=== PATIENT | male | born 1945 | race Caucasian/White ===

== ENCOUNTER → 2020-10-29 | Outpatient (CLI) | payer OTHER ==
[~2020-10-29] MED LIST: ASPI325T57 PO; FINA5TAB2 PO; TERA1CAP3 PO
== END ==
LOC: M LABSMTC 11:41
PROVIDERS: ATTEND Anesthesiology
DX: Z01.812 Encounter for preprocedural laboratory examination (principal); Z20.822 Contact with and (suspected) exposure to COVID-19

== ENCOUNTER 2020-11-03 10:26 | Day surgery (SDC) | payer OTHER ==
[~2020-11-03] VITALS: Ht 188 cm; Wt 117.0 kg
[~2020-11-03 10:26] MED LIST changes: +NS 1,000 ML IV SCH
[2020-11-03] MEDS ORDERED: propofoL 200 MG/20 ML VIAL As Ordered ONE (11:33)
[2020-11-03] MEDS ORDERED: ESMOLOL INJ 100MG/10ML VIAL As Ordered ONE (11:50)
[2020-11-03] MEDS ORDERED: LABETALOL 100MG/20ML VIAL As Ordered ONE (11:55)
--- NOTE | 2020-11-03 12:17 | ROOR ---
Patient Name: Justen Win Procedure Date: 11/03/2020 11:46 AM Date of : 1945 Age: 75 Room: [facility] Gender: Male Note Status: Finalized Procedure: Colonoscopy Indications: Screening for colorectal malignant neoplasm Providers: DO J Carlos Fulton MD: [facility], Admin. Requesting Provider: Medicines: Propofol per Anesthesia Complications: No immediate complications. Procedure: Pre-Anesthesia Assessment: - Prior to the procedure, a History and Physical was performed, and patient medications and allergies were reviewed. The patient is competent. The risks and benefits of the procedure and the sedation options and risks were discussed with the patient. All questions were answered and informed consent was obtained. Patient identification and proposed procedure were verified by the physician, the nurse, the anesthesiologist and the hvac service technician in the endoscopy suite. Mental Status Examination: alert and oriented. Airway Examination: normal oropharyngeal airway and neck mobility. Respiratory Examination: clear to auscultation. CV Examination: normal. Prophylactic Antibiotics: The patient does not require prophylactic antibiotics. Prior Anticoagulants: The patient has taken no previous anticoagulant or antiplatelet agents. ASA Grade Assessment: III - A patient with severe systemic disease. After reviewing the risks and benefits, the patient was deemed in satisfactory condition to undergo the procedure. The anesthesia plan was to use monitored anesthesia care (MAC). Immediately prior to administration of medications, the patient was re-assessed for adequacy to receive sedatives. The heart rate, respiratory rate, oxygen saturations, blood pressure, adequacy of pulmonary ventilation, and response to care were monitored throughout the procedure. The physical status of the patient was re-assessed after the procedure. The Colonoscope was introduced through the anus and advanced to the cecum, identified by appendiceal orifice and ileocecal valve. The colonoscopy was performed without difficulty. The patient tolerated the procedure well. Findings: Non-bleeding internal hemorrhoids were found during retroflexion. The hemorrhoids were mild and Grade II (internal hemorrhoids that prolapse but reduce spontaneously). Multiple small and large-mouthed diverticula were found in the sigmoid colon. A less than 5 mm polyp was found in the sigmoid colon. The polyp was hyperplastic. The polyp was removed with a jumbo cold forceps. Resection and retrieval were complete. Estimated blood loss was minimal. Impression: - Non-bleeding internal hemorrhoids. - Diverticulosis in the sigmoid colon. - One less than 5 mm polyp in the sigmoid colon, removed with a jumbo cold forceps. Resected and retrieved. Recommendation: - Patient has a contact number available for emergencies. The signs and symptoms of potential delayed complications were discussed with the patient. Return to normal activities tomorrow. Written discharge instructions were provided to the patient. - Await pathology results. - Repeat colonoscopy in 5-10 years for surveillance based on pathology results. - Return to my office at appointment to be scheduled. Procedure Code(s): --- Professional --- 69371, Colonoscopy, flexible; with biopsy, single or multiple Diagnosis Code(s): --- Professional --- Z12.11, Encounter for screening for malignant neoplasm of colon K64.1, Second degree hemorrhoids K63.5, Polyp of colon K57.30, Diverticulosis of large intestine without perforation or abscess without bleeding CPT copyright 2019 [employer]. All rights reserved. The codes documented in this report are preliminary and upon reconnaissance crewmember review may be revised to meet current compliance requirements. Curt Alamo DO 11/03/2020 12:17:29 PM Electronically signed by Curt Alamo DO Number of Addenda: 0 Note Initiated On: 11/03/2020 11:46 AM Estimated Blood Loss: Estimated blood loss was minimal.
[2020-11-03 13:01] VITALS: BP 182/93
--- NOTE | 2020-11-04 08:39 | ECGEPIP ---
[facility] Test Date: 2020-11-03 Pat Name: MARIKA SALMERON Department: Room: - Gender: Male [employer] Supervisor: LEAH : 1945 Requested By: JONATAN Perrin Order Number: [id number] Reading MD: Kenan Yao Measurements Intervals [place] Rate: 65 P: 31 NM: 198 QRS: -50 QRSD: 178 T: 132 QT: 514 QTc: 534 Interpretive Statements Sinus arrhythmia Left axis deviation Left bundle branch block No prior Electronically Signed on 11-04-2020 8:38:53 EDT by Kenan Yao
== END 2020-11-03 13:02 | disposition home or self-care (01) ==
LOC: M OPP 10:26
PROVIDERS: ATTEND Surgery
DX: Z12.11 Encounter for screening for malignant neoplasm of colon (principal); D12.5 Benign neoplasm of sigmoid colon; K64.1 Second degree hemorrhoids; K57.30 Diverticulosis of large intestine without perforation or abscess without bleeding; I10 Essential (primary) hypertension; Z87.891 Personal history of nicotine dependence; Z79.82 Long term (current) use of aspirin; Z79.899 Other long term (current) drug therapy; Z82.49 Family history of ischemic heart disease and other diseases of the circulatory system

== ENCOUNTER → 2020-12-14 | Outpatient (CLI) | payer MEDICARE, OTHER ==
[~2020-12-14] MED LIST changes: -NS 1,000 ML IV SCH
--- NOTE | 2020-12-14 16:45 | REP ---
INDICATION: COUGH. COMPARISON: None. TECHNIQUE: PA and lateral FINDINGS: There is cardiomegaly. 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 There are no patchy opacities or pleural effusions. This costophrenic angles are sharp. The osseous structures are within normal limits for the patient's age. 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 IMPRESSION: Chronic changes as described above. There is no evidence of acute cardiopulmonary disease. <Electronically signed by Maynor Rhodes > 12/14/20 [id number]
[2020-12-14 19:07] LABS: ALBUMIN 3.5 GM/DL (3.2-5.2); BILIRUBIN,TOTAL 0.5 MG/DL (0.2-1.0); CREATININE FOR GFR 1.35 MG/DL (0.70-1.30); GLOMERULAR FILTRATION RATE 54.7 (>42); POTASSIUM SERUM 4.2 MEQ/L (3.5-5.1)
== END ==
LOC: M PLALAB 14:56
PROVIDERS: ATTEND Nurse Practitioner Adult Health
DX: R05.9 Cough, unspecified (principal); I10 Essential (primary) hypertension; I42.8 Other cardiomyopathies; Z23 Encounter for immunization
CPT/HCPCS: 36415; 71046; 80053; 83880; 90682; G0008; G0463

== ENCOUNTER 2021-10-13 14:06 | Emergency (ER) | payer MEDICARE, OTHER ==
[~2021-10-13] VITALS: Ht 188 cm; Wt 114.1 kg
[2021-10-13 16:41] LABS: BACTERIA, URINE NONE SEEN; HYALINE CAST, URINE NONE SEEN /lpf (0-1); RBC, URINE TNTC /hpf (0-3); SQUAMOUS EPITHELIAL CELL URINE NONE SEEN /hpf (SMALL AMT)
[2021-10-13 17:30] LABS: INR 1.07; PROTHROMBIN TIME 14.3 SECONDS (12.7-14.5)
[2021-10-13 17:38] LABS: CALCIUM LEVEL 9.4 MG/DL (8.8-10.2); CREATININE FOR GFR 1.49 MG/DL (0.70-1.30); GLOMERULAR FILTRATION RATE 48.7 (>42); POTASSIUM SERUM 4.4 MEQ/L (3.5-5.1)
[2021-10-13] MEDS ORDERED: ISOVUE-370 76% 100ML VIAL As Ordered ONE (18:52)
[2021-10-13 20:32] LABS: BASO # 0.1 10^3/uL (0.0-0.2); BASO % 0.6 % (0.0-1.0); EOS # 0.3 10^3/uL (0.0-0.5); EOS % 2.4 % (0.0-3.0); HEMATOCRIT 42.4 % (42.0-52.0); HEMOGLOBIN 14.1 g/dl (13.5-17.5); LYMPH # 2.3 10^3/uL (1.5-5.0); LYMPH % 21.9 % (24.0-44.0); MEAN CORPUSCULAR HEMOGLOBIN 31.1 pg (27.0-33.0); MEAN CORPUSCULAR HGB CONC 33.3 g/dl (32.0-36.5); MEAN CORPUSCULAR VOLUME 93.4 fl (80.0-96.0); MONO % 9.7 % (2.0-8.0); NEUTROPHILS # 6.8 10^3/uL (1.5-8.5); PLATELET COUNT, AUTOMATED 267 10^3/uL (150-450); RED BLOOD COUNT 4.54 10^6/uL (4.30-6.10); WHITE BLOOD COUNT 10.5 10^3/uL (4.0-10.0)
[2021-10-13 21:12] LABS: ALBUMIN 3.8 GM/DL (3.2-5.2); BILIRUBIN,DIRECT 0.2 MG/DL (0.0-0.2); BILIRUBIN,TOTAL 0.8 MG/DL (0.2-1.0); TOTAL PROTEIN 7.7 GM/DL (6.4-8.2)
[2021-10-13] MEDS ORDERED: BACT800T5 PO (21:49)
[2021-10-13] MEDS ORDERED: BACTRIM 160MG/800MG DS TAB PO ONE (21:55)
[2021-10-13 22:04] VITALS: BP 141/88
== END 2021-10-13 22:15 | disposition home or self-care (01) ==
LOC: M ED 14:06
DX: T83.091A Other mechanical complication of indwelling urethral catheter, initial encounter (principal); N40.1 Benign prostatic hyperplasia with lower urinary tract symptoms; R31.9 Hematuria, unspecified; R33.9 Retention of urine, unspecified; N21.0 Calculus in bladder; N50.89 Other specified disorders of the male genital organs; N28.1 Cyst of kidney, acquired; I11.0 Hypertensive heart disease with heart failure; I50.9 Heart failure, unspecified
CPT/HCPCS: 51700; 74177; 76870; 80047; 80048; 80076; 81000; 81015; 83690; 85025; 85610; 87086; 93976; 99284; Q9967

== ENCOUNTER → 2021-11-04 | Outpatient (REF) | payer MEDICARE, OTHER ==
[~2021-11-04] MED LIST changes: +BACT800T5 PO
== END ==
LOC: M SMT 13:05
PROVIDERS: ATTEND Urology
DX: N21.0 Calculus in bladder (principal)

== ENCOUNTER → 2021-11-07 | Outpatient (CLI) | payer OTHER, MEDICARE ==
[2021-11-07 18:05] LABS: BASO # 0.1 10^3/uL (0.0-0.2); BASO % 0.8 % (0.0-1.0); EOS # 0.4 10^3/uL (0.0-0.5); HEMATOCRIT 38.4 % (42.0-52.0); HEMOGLOBIN 12.4 g/dl (13.5-17.5); LYMPH # 2.1 10^3/uL (1.5-5.0); LYMPH % 27.4 % (24.0-44.0); MEAN CORPUSCULAR HEMOGLOBIN 31.1 pg (27.0-33.0); MEAN CORPUSCULAR HGB CONC 32.3 g/dl (32.0-36.5); MEAN CORPUSCULAR VOLUME 96.2 fl (80.0-96.0); MONO # 0.7 10^3/uL (0.0-0.8); MONO % 9.7 % (2.0-8.0); NEUTROPHILS # 4.3 10^3/uL (1.5-8.5); NEUTROPHILS % 56.7 % (36.0-66.0); PLATELET COUNT, AUTOMATED 258 10^3/uL (150-450); RED BLOOD COUNT 3.99 10^6/uL (4.30-6.10); WHITE BLOOD COUNT 7.6 10^3/uL (4.0-10.0)
[2021-11-07 18:19] LABS: INR 1.03; PROTHROMBIN TIME 13.9 SECONDS (12.7-14.5)
[2021-11-07 18:20] LABS: PARTIAL THROMBOPLASTIN TIME 35.4 SECONDS (25.9-37.0)
[2021-11-07 18:31] LABS: ALBUMIN 3.7 GM/DL (3.2-5.2); BILIRUBIN,TOTAL 0.4 MG/DL (0.2-1.0); CREATININE FOR GFR 1.44 MG/DL (0.70-1.30); GLOMERULAR FILTRATION RATE 50.6 (>42); MAGNESIUM LEVEL 2.6 MG/DL (1.8-2.4); POTASSIUM SERUM 3.9 MEQ/L (3.5-5.1); TOTAL PROTEIN 7.7 GM/DL (6.4-8.2)
== END ==
LOC: M RAD 17:06
PROVIDERS: ATTEND Family Medicine
DX: E78.2 Mixed hyperlipidemia (principal); D50.9 Iron deficiency anemia, unspecified

== ENCOUNTER → 2021-11-09 | Outpatient (CLI) | payer MEDICARE, OTHER | LOC: M LABSMTC 10:55 | PROVIDERS: ATTEND Anesthesiology | DX: Z01.812 Encounter for preprocedural laboratory examination (principal); Z11.52 Encounter for screening for COVID-19 ==

== ENCOUNTER 2021-11-14 06:04 | Day surgery (SDC) | payer OTHER ==
[~2021-11-14] VITALS: Ht 188 cm; Wt 108.8 kg
[~2021-11-14 06:04] MED LIST changes: +ATOR80TA59 PO; +ELIQ5TAB PO; +FLOM0.4C39 PO; +FURO40TA2 PO; +LEVO1TAB39 PO; +MM S100C PO; +POLY1POW38 PO
[2021-11-14] MEDS ORDERED: ceFAZolin SOD 2 GM in IV 1 EA IV ONE (06:10)
[2021-11-14] MEDS ORDERED: LR 1,000 ML IV SCH ×2 (06:50→10:00)
[2021-11-14] MEDS ORDERED: propofoL 200 MG/20 ML VIAL As Ordered ONE (07:09)
[2021-11-14] MEDS ORDERED: LIDOCAINE 2% 100MG/5ML SDV (FOR ANES.) As Ordered ONE (07:09)
[2021-11-14] MEDS ORDERED: fentaNYL 100 MCG/2 ML INJECTION As Ordered ONE ×2 (07:09→09:04)
[2021-11-14] MEDS ORDERED: ONDANSETRON 4MG 2ML VIAL As Ordered ONE (07:09)
[2021-11-14] MEDS ORDERED: MIDAZOLAM INJ 2MG/2ML VIAL (J2250 PER 1MG) As Ordered ONE (07:09)
[2021-11-14] MEDS ORDERED: dexameTHASONE 4 MG/ML 1ML VIAL (J1100 PER 1MG) As Ordered ONE (07:09)
[2021-11-14] MEDS ORDERED: CIPROFLOXACIN 400 MG in IV 1 EA IV ONE (08:30)
[2021-11-14] MEDS ORDERED: CIPROFLOXACIN/D5W 400 MG/200 ML BAG (J0744) As Ordered ONE (08:36)
[2021-11-14] MEDS ORDERED: ACETAMINOPHEN 1000MG 100ML IV BTL (OFIRMEV) (J0131 PER 10MG) As Ordered ONE (08:51)
[2021-11-14] MEDS ORDERED: PHENYLephrine 500MCG 5ML (100MCG/ML) SYRINGE As Ordered ONE ×2 (09:05→09:09)
[2021-11-14] MEDS ORDERED: VASOPRESSIN INJ 20 UNITS/ML VIAL As Ordered ONE (09:31)
[2021-11-14] MEDS ORDERED: fentaNYL 100 MCG/2 ML INJECTION IV PRN (10:00)
[2021-11-14] MEDS ORDERED: oxyCODONE 5MG TAB PO PRN (10:00)
[2021-11-14] MEDS ORDERED: ONDANSETRON 4MG 2ML VIAL IV PRN (10:00)
[2021-11-14] MEDS ORDERED: LEVO1TAB39 PO (10:03)
[2021-11-14 12:25] VITALS: BP 127/88
== END 2021-11-14 12:38 | disposition home or self-care (01) ==
LOC: M SDC 06:04
PROVIDERS: ATTEND Urology
DX: N21.0 Calculus in bladder (principal); N40.1 Benign prostatic hyperplasia with lower urinary tract symptoms; R33.9 Retention of urine, unspecified
CPT/HCPCS: 52318; 82365; C1769; J0131; J0690; J0744; J1100; J2250; J2370; J2405; J3010

== ENCOUNTER 2022-07-17 01:12 | Observation (INO) | payer MEDICARE, OTHER ==
[~2022-07-17] VITALS: Ht 188 cm; Wt 111.2 kg
[2022-07-17 03:06] LABS: BASO # 0.1 10^3/uL (0.0-0.2); BASO % 0.6 % (0.0-1.0); EOS # 0.2 10^3/uL (0.0-0.5); EOS % 2.4 % (0.0-3.0); HEMATOCRIT 40.3 % (42.0-52.0); HEMOGLOBIN 12.6 g/dl (13.5-17.5); LYMPH # 0.9 10^3/uL (1.5-5.0); LYMPH % 10.2 % (24.0-44.0); MEAN CORPUSCULAR HEMOGLOBIN 26.4 pg (27.0-33.0); MEAN CORPUSCULAR HGB CONC 31.3 g/dl (32.0-36.5); MEAN CORPUSCULAR VOLUME 84.3 fl (80.0-96.0); MONO # 0.6 10^3/uL (0.0-0.8); MONO % 7.1 % (2.0-8.0); NEUTROPHILS # 6.7 10^3/uL (1.5-8.5); NEUTROPHILS % 79.3 % (36.0-66.0); PLATELET COUNT, AUTOMATED 281 10^3/uL (150-450); RED BLOOD COUNT 4.78 10^6/uL (4.30-6.10); WHITE BLOOD COUNT 8.5 10^3/uL (4.0-10.0)
[2022-07-17 03:19] LABS: INR 1.08; PROTHROMBIN TIME 14.2 SECONDS (12.5-14.5)
[2022-07-17 03:20] LABS: PARTIAL THROMBOPLASTIN TIME 32.5 SECONDS (24.8-34.2)
[2022-07-17 03:30] LABS: ALBUMIN 3.4 G/DL (3.2-5.2); BILIRUBIN,DIRECT 0.1 MG/DL (<0.4); BILIRUBIN,TOTAL 0.3 MG/DL (0.3-1.2); CALCIUM LEVEL 9.5 MG/DL (8.3-10.6); CREATININE FOR GFR 1.54 MG/DL (0.70-1.30); GLOMERULAR FILTRATION RATE 46.7 (>42); POTASSIUM SERUM 3.6 MMOL/L (3.5-5.1)
[2022-07-17] MEDS ORDERED: LevoFLOXacin 750 MG TABLET PO SCH (06:00)
[2022-07-17] MEDS ORDERED: cefTRIAXone SOD 2 GM in D5W MINI-BAG PLUS 50 ML IV ONE (07:45)
[2022-07-17] MEDS ORDERED: METO200T28 PO (08:44)
[2022-07-17] MEDS ORDERED: ELIQ5TAB PO (08:44)
[2022-07-17] MEDS ORDERED: JARD1TAB3 PO (08:44)
[2022-07-17] MEDS ORDERED: MED REC COMMENT (08:46)
[2022-07-17] MEDS ORDERED: FUROSEMIDE 40 MG TAB PO SCH (09:00)
[2022-07-17] MEDS ORDERED: ATORVASTATIN 20 MG TAB PO SCH (09:00)
[2022-07-17] MEDS ORDERED: HOME MED LIST COMPLETE! XX SCH (09:00)
[2022-07-17] MEDS ORDERED: TAMSULOSIN 0.4 MG CAP PO SCH (09:00)
[2022-07-17] MEDS ORDERED: METOPROLOL SUCC (TopROL XL) 100MG *XL* TAB PO SCH (09:00)
[2022-07-17 10:00] VITALS: BP 142/88; TEMP 97.3; O2SAT 97
[2022-07-17] MEDS ORDERED: LEVO1TAB40 PO (13:59)
[2022-07-17] MEDS ORDERED: DOCUSATE SODIUM 100MG CAPSULE PO SCH (21:00)
== END 2022-07-17 14:24 | disposition left against medical advice (07) ==
LOC: M ED 01:12 → INTOOBSV 08:31 → M ED INP 08:31 → ENRESERV 09:01 → M MSPAV 10:03
PROVIDERS: ADMIT Internal Medicine; ATTEND Internal Medicine
DX: T83.018A Breakdown (mechanical) of other urinary catheter, initial encounter (principal); Y73.2 Prosthetic and other implants, materials and accessory gastroenterology and urology devices associated with adverse incidents; R31.9 Hematuria, unspecified; N48.89 Other specified disorders of penis; B95.62 Methicillin resistant Staphylococcus aureus infection as the cause of diseases classified elsewhere; N40.1 Benign prostatic hyperplasia with lower urinary tract symptoms; R33.9 Retention of urine, unspecified; I13.0 Hypertensive heart and chronic kidney disease with heart failure and stage 1 through stage 4 chronic kidney disease, or unspecified chronic kidney disease; N18.30 Chronic kidney disease, stage 3 unspecified; I50.9 Heart failure, unspecified; I25.10 Atherosclerotic heart disease of native coronary artery without angina pectoris; I25.2 Old myocardial infarction; Z91.199 Patient's noncompliance with other medical treatment and regimen due to unspecified reason; Z79.899 Other long term (current) drug therapy; Z79.01 Long term (current) use of anticoagulants; Z79.890 Hormone replacement therapy
CPT/HCPCS: 51700; 74176; 80048; 80076; 81000; 81015; 83690; 85025; 85610; 85730; 86850; 86900; 86901; 87088; 87186; 87635; 93041; 96365; 99285; G0378; J0696

== ENCOUNTER 2022-07-20 03:27 | Emergency (ER) | payer OTHER, MEDICARE ==
[~2022-07-20] VITALS: Ht 188 cm; Wt 114.9 kg
[~2022-07-20 03:27] MED LIST changes: +JARD1TAB3 PO; +LEVO1TAB40 PO; +MED REC COMMENT; +METO200T28 PO
[2022-07-20 06:24] VITALS: BP 136/64
== END 2022-07-20 06:27 | disposition home or self-care (01) ==
LOC: M ED 03:27 → EEVIPCON 03:27 → M ED 06:27
DX: R33.9 Retention of urine, unspecified (principal); T83.091A Other mechanical complication of indwelling urethral catheter, initial encounter; E11.9 Type 2 diabetes mellitus without complications; I10 Essential (primary) hypertension; E78.5 Hyperlipidemia, unspecified; Z79.01 Long term (current) use of anticoagulants; Z79.899 Other long term (current) drug therapy

== ENCOUNTER → 2022-08-02 | Outpatient (REF) | payer OTHER | LOC: M SMT 17:16 | PROVIDERS: ATTEND Urology | DX: R33.9 Retention of urine, unspecified (principal) ==

== ENCOUNTER → 2022-08-11 | Outpatient (CLI) | payer MEDICARE, OTHER ==
[2022-08-11 11:30] LABS: HEMATOCRIT 39.7 % (42.0-52.0); HEMOGLOBIN 12.1 g/dl (13.5-17.5); MEAN CORPUSCULAR HEMOGLOBIN 26.1 pg (27.0-33.0); MEAN CORPUSCULAR HGB CONC 30.5 g/dl (32.0-36.5); MEAN CORPUSCULAR VOLUME 85.6 fl (80.0-96.0); PLATELET COUNT, AUTOMATED 248 10^3/uL (150-450); RED BLOOD COUNT 4.64 10^6/uL (4.30-6.10); WHITE BLOOD COUNT 6.2 10^3/uL (4.0-10.0)
[2022-08-11 11:38] LABS: INR 1.12; PROTHROMBIN TIME 14.6 SECONDS (12.5-14.5)
[2022-08-11 12:04] LABS: ALBUMIN 3.6 G/DL (3.2-5.2); ALKALINE PHOSPHATASE 79 U/L (46-116); ALT/SGPT < 9 U/L (7.0-40); AST/SGOT 16 U/L (<34); BILIRUBIN,TOTAL 0.6 MG/DL (0.3-1.2); BLOOD UREA NITROGEN 21 MG/DL (9-23); CALCIUM LEVEL 8.4 MG/DL (8.3-10.6); CARBON DIOXIDE LEVEL 25 MMOL/L (20-31); CHLORIDE LEVEL 105 MMOL/L (98-107); CREATININE FOR GFR 1.43 MG/DL (0.70-1.30); GLOMERULAR FILTRATION RATE 50.9 (>42); GLUCOSE, FASTING 126 MG/DL (74-106); POTASSIUM SERUM 3.8 MMOL/L (3.5-5.1); SODIUM LEVEL 138 MMOL/L (136-145)
[2022-08-14 23:11] LABS: PSA % FREE 29.3 % (.); PSA FREE 2.81 ng/mL; PSA TOTAL 9.6 ng/mL (0.0-4.0)
== END ==
LOC: M RAD 10:12
PROVIDERS: ATTEND Urology
DX: R33.9 Retention of urine, unspecified (principal); Z79.01 Long term (current) use of anticoagulants; R97.20 Elevated prostate specific antigen [PSA]

== ENCOUNTER 2022-09-14 19:54 | Emergency (ER) | payer MEDICARE, OTHER ==
[~2022-09-14] VITALS: Ht 188 cm; Wt 114.0 kg
[2022-09-15 01:08] VITALS: BP 126/86; TEMP 96.4; O2SAT 96
== END 2022-09-15 01:09 | disposition home or self-care (01) ==
LOC: M ED 19:54
DX: R33.9 Retention of urine, unspecified (principal); T83.098A Other mechanical complication of other urinary catheter, initial encounter; I11.9 Hypertensive heart disease without heart failure; I48.91 Unspecified atrial fibrillation; I50.20 Unspecified systolic (congestive) heart failure; Z79.01 Long term (current) use of anticoagulants; Z79.899 Other long term (current) drug therapy

== ENCOUNTER 2023-06-16 23:43 | Emergency (ER) | payer MEDICARE, OTHER ==
[~2023-06-16] VITALS: Ht 188 cm; Wt 109.7 kg
[~2023-06-16 23:43] MED LIST changes: +METO200T15 PO; -METO200T28 PO
[2023-06-17 03:25] LABS: BASO % 0.7 % (0.0-1.0); EOS # 0.2 10^3/uL (0.0-0.5); EOS % 2.5 % (0.0-3.0); HEMOGLOBIN 11.1 g/dl (13.5-17.5); LYMPH # 0.8 10^3/uL (1.5-5.0); LYMPH % 13.7 % (24.0-44.0); MEAN CORPUSCULAR HEMOGLOBIN 30.7 pg (27.0-33.0); MEAN CORPUSCULAR HGB CONC 33.6 g/dl (32.0-36.5); MEAN CORPUSCULAR VOLUME 91.2 fl (80.0-96.0); MONO # 0.6 10^3/uL (0.0-0.8); MONO % 9.6 % (2.0-8.0); NEUTROPHILS # 4.5 10^3/uL (1.5-8.5); NEUTROPHILS % 73.3 % (36.0-66.0); PLATELET COUNT, AUTOMATED 217 10^3/uL (150-450); RED BLOOD COUNT 3.62 10^6/uL (4.30-6.10); WHITE BLOOD COUNT 6.1 10^3/uL (4.0-10.0)
[2023-06-17 03:37] LABS: INR 1.13; PARTIAL THROMBOPLASTIN TIME 30.6 SECONDS (24.8-34.2); PROTHROMBIN TIME 14.2 SECONDS (12.5-14.5)
[2023-06-17 03:56] LABS: CALCIUM LEVEL 8.6 MG/DL (8.3-10.6); CREATININE FOR GFR 1.27 MG/DL (0.70-1.30); GLOMERULAR FILTRATION RATE 58.2 (>42); POTASSIUM SERUM 3.9 MMOL/L (3.5-5.1)
[2023-06-17 06:45] VITALS: BP 148/88; TEMP 97.8; O2SAT 96
== END 2023-06-17 07:00 | disposition home or self-care (01) ==
LOC: M ED 23:43
DX: R31.9 Hematuria, unspecified (principal); T83.098A Other mechanical complication of other urinary catheter, initial encounter; F10.10 Alcohol abuse, uncomplicated; Z79.899 Other long term (current) drug therapy

== ENCOUNTER 2023-06-19 19:37 | Observation (INO) | payer MEDICARE, OTHER ==
[~2023-06-19] VITALS: Ht 188 cm; Wt 104.7 kg
[2023-06-19] MEDS: ONDANSETRON 4MG 2ML VIAL IV ONE (21:10)
[2023-06-19 21:43] LABS: BASO % 0.5 % (0.0-1.0); EOS # 0.2 10^3/uL (0.0-0.5); EOS % 2.7 % (0.0-3.0); HEMATOCRIT 31.6 % (42.0-52.0); HEMOGLOBIN 10.5 g/dl (13.5-17.5); LYMPH # 0.9 10^3/uL (1.5-5.0); MEAN CORPUSCULAR HEMOGLOBIN 30.7 pg (27.0-33.0); MEAN CORPUSCULAR HGB CONC 33.2 g/dl (32.0-36.5); MEAN CORPUSCULAR VOLUME 92.4 fl (80.0-96.0); MONO # 0.7 10^3/uL (0.0-0.8); MONO % 10.7 % (2.0-8.0); NEUTROPHILS # 4.4 10^3/uL (1.5-8.5); NEUTROPHILS % 70.5 % (36.0-66.0); PLATELET COUNT, AUTOMATED 230 10^3/uL (150-450); RED BLOOD COUNT 3.42 10^6/uL (4.30-6.10); WHITE BLOOD COUNT 6.2 10^3/uL (4.0-10.0)
[2023-06-19 21:56] LABS: INR 1.06; PARTIAL THROMBOPLASTIN TIME 32.2 SECONDS (24.8-34.2); PROTHROMBIN TIME 13.5 SECONDS (12.5-14.5)
[2023-06-19] MEDS: MORPHINE 4 MG/ML 1ML VIAL IV PRN (21:58)
[2023-06-19 22:09] LABS: LIPASE 32 U/L (12-53)
[2023-06-19 22:12] LABS: ALBUMIN 2.6 G/DL (3.2-5.2); ALKALINE PHOSPHATASE 70 U/L (46-116); ALT/SGPT < 9 U/L (7.0-40); AST/SGOT 16 U/L (<34); BILIRUBIN,DIRECT 0.1 MG/DL (<0.4); BILIRUBIN,TOTAL 0.3 MG/DL (0.3-1.2); BLOOD UREA NITROGEN 19 MG/DL (9-23); CALCIUM LEVEL 8.3 MG/DL (8.3-10.6); CARBON DIOXIDE LEVEL 25 MMOL/L (20-31); CHLORIDE LEVEL 107 MMOL/L (98-107); CREATININE FOR GFR 1.34 MG/DL (0.70-1.30); GLOMERULAR FILTRATION RATE 54.7 (>42); GLUCOSE, FASTING 129 MG/DL (74-106); POTASSIUM SERUM 3.8 MMOL/L (3.5-5.1); SODIUM LEVEL 140 MMOL/L (136-145); TOTAL PROTEIN 6.1 G/DL (5.7-8.2)
[2023-06-20] MEDS ORDERED: VITA500T40 PO (00:07)
[2023-06-20] MEDS ORDERED: ENTR1TAB PO (00:07)
[2023-06-20] MEDS ORDERED: HOME MED LIST COMPLETE! XX SCH (00:10)
[2023-06-20] MEDS: NS 1,000 ML IV SCH (02:29)
[2023-06-20 03:13] VITALS: BP 136/85; TEMP 97; O2SAT 98
[2023-06-20] MEDS: cefTRIAXone SOD 1 GM in D5W MINI-BAG PLUS 50 ML IV SCH (05:18)
[2023-06-20 05:52] LABS: HEMATOCRIT 28.9 % (42.0-52.0); HEMOGLOBIN 9.6 g/dl (13.5-17.5); MEAN CORPUSCULAR HEMOGLOBIN 30.4 pg (27.0-33.0); MEAN CORPUSCULAR HGB CONC 33.2 g/dl (32.0-36.5); MEAN CORPUSCULAR VOLUME 91.5 fl (80.0-96.0); PLATELET COUNT, AUTOMATED 229 10^3/uL (150-450); RED BLOOD COUNT 3.16 10^6/uL (4.30-6.10); WHITE BLOOD COUNT 5.6 10^3/uL (4.0-10.0)
[2023-06-20 06:14] LABS: BLOOD UREA NITROGEN 15 MG/DL (9-23); CALCIUM LEVEL 7.9 MG/DL (8.3-10.6); CARBON DIOXIDE LEVEL 26 MMOL/L (20-31); CHLORIDE LEVEL 107 MMOL/L (98-107); GLOMERULAR FILTRATION RATE > 60.0 (>42); GLUCOSE, FASTING 95 MG/DL (74-106); POTASSIUM SERUM 3.7 MMOL/L (3.5-5.1); SODIUM LEVEL 139 MMOL/L (136-145)
[2023-06-20 07:30] VITALS: BP 140/80; TEMP 98; O2SAT 95
[2023-06-20] MEDS: METOPROLOL SUCC (TopROL XL) 100MG *XL* TAB PO SCH (09:00)
[2023-06-20] MEDS: ENTRESTO 24-26MG TABLET (SACUBITRIL/VALSARTAN) PO SCH (09:00)
[2023-06-20] MEDS: ATORVASTATIN 20 MG TAB PO SCH (09:00)
[2023-06-20] MEDS: DOCUSATE SODIUM 100MG CAPSULE PO SCH (09:00)
[2023-06-20] MEDS: FINASTERIDE 5MG TAB PO SCH (09:00)
[2023-06-20] MEDS: CYANOCOBALAMIN 500 MCG TAB PO SCH (09:00)
[2023-06-20 11:58] VITALS: BP 131/83; TEMP 98.9; O2SAT 95
[2023-06-20] MEDS ORDERED: propofoL 200 MG/20 ML VIAL As Ordered ONE (15:50)
[2023-06-20] MEDS ORDERED: LIDOCAINE 2% 100MG/5ML SDV (FOR ANES.) As Ordered ONE (15:50)
[2023-06-20] MEDS ORDERED: ONDANSETRON 4MG 2ML VIAL As Ordered ONE (15:51)
[2023-06-20 15:57] VITALS: BP 150/86; TEMP 98.8; O2SAT 96
[2023-06-20] MEDS ORDERED: fentaNYL 100 MCG/2 ML INJECTION As Ordered ONE (17:03)
[2023-06-20] MEDS ORDERED: ACETAMINOPHEN 1000MG 100ML IV BAG As Ordered ONE (17:16)
[2023-06-20] MEDS ORDERED: MORPHINE 2 MG/ML 1ML VIAL IV PRN (18:00)
[2023-06-20] MEDS ORDERED: fentaNYL 100 MCG/2 ML INJECTION IV PRN (18:00)
[2023-06-20] MEDS ORDERED: oxyCODONE 5MG TAB PO PRN (18:00)
[2023-06-20] MEDS ORDERED: METOCLOPRAMIDE INJ 10MG/2ML VIAL IV PRN (18:00)
[2023-06-20] MEDS ORDERED: MEPERIDINE 25 MG/ML 1ML VIAL IV PRN (18:00)
[2023-06-20] MEDS ORDERED: ONDANSETRON 4MG 2ML VIAL IV PRN (18:00)
[2023-06-20 18:36] VITALS: BP 147/82; TEMP 97.2; O2SAT 95
[2023-06-20] MEDS: LR 1,000 ML IV SCH (18:39)
[2023-06-21] VITALS: BP 141/84; TEMP 97.3; O2SAT 95
[2023-06-21] MEDS: ACETAMINOPHEN TAB 650MG DOSE (2X325MG) PO PRN (02:30)
[2023-06-21 04:10] VITALS: BP 148/83; TEMP 98.2; O2SAT 98
[2023-06-21] MEDS ORDERED: BACI1CAP PO (07:24)
[2023-06-21] MEDS ORDERED: CEFD300CAP PO (07:24)
[2023-06-21 08:05] VITALS: BP 152/88; TEMP 98; O2SAT 95
[2023-06-21 08:10] LABS: BASO % 0.4 % (0.0-1.0); EOS % 0.4 % (0.0-3.0); HEMATOCRIT 30.4 % (42.0-52.0); HEMOGLOBIN 10.2 g/dl (13.5-17.5); LYMPH # 0.9 10^3/uL (1.5-5.0); LYMPH % 14.9 % (24.0-44.0); MEAN CORPUSCULAR HEMOGLOBIN 30.6 pg (27.0-33.0); MEAN CORPUSCULAR HGB CONC 33.6 g/dl (32.0-36.5); MEAN CORPUSCULAR VOLUME 91.3 fl (80.0-96.0); MONO # 0.4 10^3/uL (0.0-0.8); MONO % 6.5 % (2.0-8.0); NEUTROPHILS # 4.4 10^3/uL (1.5-8.5); NEUTROPHILS % 77.4 % (36.0-66.0); PLATELET COUNT, AUTOMATED 247 10^3/uL (150-450); RED BLOOD COUNT 3.33 10^6/uL (4.30-6.10); WHITE BLOOD COUNT 5.7 10^3/uL (4.0-10.0)
[2023-06-21 08:25] LABS: CREATININE FOR GFR 1.24 MG/DL (0.70-1.30); GLOMERULAR FILTRATION RATE 59.9 (>42); POTASSIUM SERUM 4.2 MMOL/L (3.5-5.1)
[2023-06-21 08:32] VITALS: BP 152/88
[2023-06-21] MEDS ORDERED: NS 1,000 ML IV SCH (08:45)
[2023-06-21] MEDS ORDERED: OXYB5TAB14 PO (11:48)
[2023-06-21 11:50] VITALS: BP 111/56; TEMP 98.3; O2SAT 96
[2023-06-21] MEDS: LevoFLOXacin 750 MG TABLET PO SCH (13:51)
[2023-06-21] MEDS: oxyBUTYnin 5 MG TAB PO SCH (13:51)
[2023-06-22] MEDS ORDERED: LevoFLOXacin 500 MG TABLET PO SCH (06:00)
== END 2023-06-21 14:31 | disposition home or self-care (01) ==
LOC: M ED 19:37 → M ED INP 06-20 00:45 → ENRESERV 06-20 01:51 → M PCU 06-20 03:13
PROVIDERS: ADMIT Preventive Medicine Undersea and Hyperbaric Medicine; ATTEND Preventive Medicine Undersea and Hyperbaric Medicine
DX: N40.3 Nodular prostate with lower urinary tract symptoms (principal); N30.91 Cystitis, unspecified with hematuria; R33.9 Retention of urine, unspecified; R31.0 Gross hematuria; Z96.0 Presence of urogenital implants; N32.89 Other specified disorders of bladder; I50.20 Unspecified systolic (congestive) heart failure; N40.1 Benign prostatic hyperplasia with lower urinary tract symptoms; Z91.198 Patient's noncompliance with other medical treatment and regimen for other reason; Z79.899 Other long term (current) drug therapy; Z79.01 Long term (current) use of anticoagulants; N50.89 Other specified disorders of the male genital organs; K44.9 Diaphragmatic hernia without obstruction or gangrene; K40.20 Bilateral inguinal hernia, without obstruction or gangrene, not specified as recurrent; D62 Acute posthemorrhagic anemia; K57.90 Diverticulosis of intestine, part unspecified, without perforation or abscess without bleeding; I86.1 Scrotal varices; M48.07 Spinal stenosis, lumbosacral region; M51.37 Other intervertebral disc degeneration, lumbosacral region
CPT/HCPCS: 36415; 51700; 52001; 52601; 74176; 80048; 80076; 83605; 83690; 85025; 85027; 85610; 85730; 86850; 86900; 86901; 88305; 93041; 96374; 96376; 97116; 97161; 99285; C1769; G0378; J0131; J0696; J1100; J2405; J3010